=== PATIENT | male | born 1955 ===

== ENCOUNTER 2020-07-09 08:10 | Outpatient (REF) | payer MEDICARE, MEDICAID, SELFPAY ==
[2020-07-09 11:22] LABS: Anion Gap 13 (12-20); Blood Urea Nitrogen 15 mg/dL (9-16); Carbon Dioxide 28 mmol/L (22-29); Chloride 102 mmol/L (96-108); Estimated Glomerular Filt Rate > 60; Potassium 3.9 mmol/l (3.3-5.1); Sodium 139 mmol/L (135-145)
== END 2020-07-09 08:11 | disposition home or self-care (01) ==
LOC: HO.10HDL 08:10
PROVIDERS: Visit Provider Family Medicine
DX: I10 Essential (primary) hypertension (principal)
CPT/HCPCS: 36415; 80051; 82565; 84520

== ENCOUNTER → 2020-09-25 08:39 | Outpatient (BNVA) | payer MEDICARE, MEDICAID, SELFPAY | PROVIDERS: PCP Family Medicine; Visit Provider Anesthesiology | DX: M17.0 Bilateral primary osteoarthritis of knee (principal); M76.32 Iliotibial band syndrome, left leg; M70.61 Trochanteric bursitis, right hip; M70.62 Trochanteric bursitis, left hip; M54.5 Low back pain; E66.01 Morbid (severe) obesity due to excess calories; G89.4 Chronic pain syndrome | CPT/HCPCS: 99202; Q3014 ==

== ENCOUNTER 2020-10-15 06:09 | Outpatient (REF) | payer MEDICARE, SELFPAY ==
--- NOTE | 2020-10-15 08:13 | FL_ITS ---
EXAMINATION: XR FLUOROSCOPY WITH IMAGES CLINICAL INFORMATION: M17.0 - Bilateral primary osteoarthritis of knee COMPARISON: Radiographs right knee 05/10/2019 TECHNIQUE: Fluoroscopy performed by Ally Lipscomb NP. Fluoroscopy time: 0.1 minutes DAP: 0.589 Gycm2 Images: 2 FINDINGS: There is a spinal needle adjacent to the mid aspect medial side proximal tibia. There is a small round density representing known artifact overlying distal femur on both views. FL/FL guidance in treatment room IMPRESSION: Fluoroscopy for pain management procedure.
== END 2020-10-15 06:10 | disposition home or self-care (01) ==
LOC: HO.RADIR 06:09
PROVIDERS: Visit Provider Anesthesiology
DX: M17.0 Bilateral primary osteoarthritis of knee (principal); M76.32 Iliotibial band syndrome, left leg; M70.62 Trochanteric bursitis, left hip; M54.5 Low back pain; G89.4 Chronic pain syndrome; E66.01 Morbid (severe) obesity due to excess calories
CPT/HCPCS: 64450

== ENCOUNTER → 2020-10-21 10:39 | Outpatient (BNVA) | payer MEDICARE, SELFPAY | PROVIDERS: PCP Family Medicine; Visit Provider Anesthesiology | DX: M17.0 Bilateral primary osteoarthritis of knee (principal); E66.01 Morbid (severe) obesity due to excess calories; G89.4 Chronic pain syndrome; M76.32 Iliotibial band syndrome, left leg; M70.61 Trochanteric bursitis, right hip; M70.62 Trochanteric bursitis, left hip; M54.5 Low back pain | CPT/HCPCS: Q3014 ==

== ENCOUNTER 2020-12-23 10:09 | Outpatient (REF) | payer MEDICARE, SELFPAY | END 2020-12-23 10:10 | disposition home or self-care (01) | LOC: HO.LAB 10:09 | PROVIDERS: Visit Provider Internal Medicine | DX: Z20.822 Contact with and (suspected) exposure to COVID-19 (principal) | CPT/HCPCS: 36415; C9803; U0003; U0005 ==

== ENCOUNTER 2021-03-18 08:54 | Outpatient (REF) | payer MEDICARE, SELFPAY ==
[2021-03-18 09:45] LABS: Alanine Aminotransferase 33 U/L (0-40); Anion Gap 14 (12-20); Aspartate Amino Transferase 29 U/L (5-37); Blood Urea Nitrogen 16 mg/dL (9-16); Carbon Dioxide 25 mmol/L (22-29); Chloride 104 mmol/L (96-108); Estimated Glomerular Filt Rate > 60; Potassium 3.8 mmol/L (3.3-5.1); Sodium 139 mmol/L (135-145)
[2021-03-29 17:22] LABS: FIB-ALT 29 U/L (9-46); FIB-Alpha-2-Macroglobulin 247 mg/dL (106-279); FIB-Apolipoprotein A1 138 mg/dL (94-176); FIB-GGT 34 U/L (3-70); FIB-Haptoglobin 152 mg/dL (43-212); FIB-Total Bilirubin 0.5 mg/dL (0.2-1.2); Liver Fibrosis Score 0.41; Liver Fibrosis Stage F1-F2; Nec Inflam Act Grade A0; Nec Inflam Act Score 0.16
== END 2021-03-18 08:55 | disposition home or self-care (01) ==
LOC: HO.10HDL 08:54
PROVIDERS: Visit Provider Family Medicine
DX: I10 Essential (primary) hypertension (principal); K75.81 Nonalcoholic steatohepatitis (NASH)
CPT/HCPCS: 36415; 80051; 81596; 82565; 84450; 84460; 84520

== ENCOUNTER → 2021-07-31 10:41 | Outpatient (BNVA) | payer MEDICARE, SELFPAY | PROVIDERS: Visit Provider Anesthesiology | DX: M17.0 Bilateral primary osteoarthritis of knee (principal); M76.32 Iliotibial band syndrome, left leg; M70.62 Trochanteric bursitis, left hip; M70.61 Trochanteric bursitis, right hip; M54.50 Low back pain, unspecified; G89.4 Chronic pain syndrome; E66.01 Morbid (severe) obesity due to excess calories; Z68.37 Body mass index [BMI] 37.0-37.9, adult | CPT/HCPCS: 99212 ==

== ENCOUNTER 2021-09-16 09:29 | Outpatient (REF) | payer MEDICARE, SELFPAY ==
[2021-09-16 10:41] LABS: Alanine Aminotransferase 49 U/L (0-40); Anion Gap 13 (12-20); Aspartate Amino Transferase 49 U/L (5-37); Blood Urea Nitrogen 12 mg/dL (9-16); Carbon Dioxide 26 mmol/L (22-29); Chloride 102 mmol/L (96-108); Estimated Glomerular Filt Rate > 60; Potassium 3.9 mmol/L (3.3-5.1); Sodium 137 mmol/L (135-145)
== END 2021-09-16 09:30 | disposition home or self-care (01) ==
LOC: HO.10HDL 09:29
PROVIDERS: Visit Provider Family Medicine
DX: I10 Essential (primary) hypertension (principal); K75.81 Nonalcoholic steatohepatitis (NASH)
CPT/HCPCS: 36415; 80051; 82565; 84450; 84460; 84520

== ENCOUNTER 2021-09-19 07:20 | Day surgery (SDC) | payer MEDICARE, SELFPAY ==
--- NOTE | ~2021-09-19 | FL_ITS ---
EXAMINATION: XR FLUOROSCOPY WITH IMAGES CLINICAL INFORMATION: Stimulator trial. COMPARISON: None. TECHNIQUE: Fluoroscopy performed by Dr. Yomi Nelson Fluoroscopy time: 0.4 minutes DAP: 1.53 mGy-cm2 Images: 2 FINDINGS: 2 digital images were obtained. The first image reveals a metallic pin along the medial proximal tibial cortex. This second image reveals a stimulator electrode along medial proximal tibial cortex. Mild reduction in medial and lateral compartment joint space is seen. No loose bodies or bony erosive changes. FL/FL guidance in OR IMPRESSION: Fluoroscopy was provided to Dr. Nelson for stimulator trial.
--- NOTE | 2021-09-19 08:00 | HO.ANESPROP2 ---
HPI - Anesthesia Eval Consult details Narrative: 66 M for Infrapatellar Saphenous nerve stimulation trial. PMFSH Active Problems Active Problems: All Active Problems (Updated 09/25/20 @ 09:33 by Yomi Nelson MD) Morbid obesity (Acute) Chronic pain syndrome (Acute) Low back pain (Acute) Greater trochanteric bursitis of both hips (Acute) Iliotibial band syndrome, left leg (Acute) Bilateral primary osteoarthritis of knee (Acute) Past Medical History Medical History (Updated 09/25/20 @ 09:33 by Yomi Nelson MD) Bilateral primary osteoarthritis of knee Chronic pain syndrome Greater trochanteric bursitis of both hips Iliotibial band syndrome, left leg Low back pain Morbid obesity Family History Family history of problems with anesthesia: No Surgical History History of Problems with Anesthesia: No Social History Social History Advance Directives: No Advance Directives Information Provided: Yes Meds Allergies Allergy/AdvReac Type Severity Reaction Status Date / Time No Known Allergies Allergy Verified 07/31/21 10:55 [No Known Allergies*] Home Medications Medication Instructions Recorded Confirmed Last Taken Type metoprolol succinate 100 mg 100 mg PO DAILY 09/25/20 10/21/20 Unknown History tablet,extended release 24 hr sertraline 50 mg tablet 50 mg PO DAILY 09/25/20 10/21/20 Unknown History tramadol 50 mg tablet mg PO 09/25/20 10/21/20 Unknown History Exam Exam Date and Time: September 19, 2021 0800 Airway Mallampati Class: III Loose/Missing/Broken Teeth: Yes (Chipped and missing teeth ) Heart: rrr Lungs: bl breath sounds Assessment and Plan Assessment Anesthesia Assessment: Anesthesia Plan Discussed Final Anesthetic Review Family History of Problems with Anesthesia: No History of Problems with Anesthesia: No ASA Class: III Final Preanesthetic Review: Anes Risks/Benef Reviewed Patient Risk: Intermediate Procedure Risk: Intermediate Anesthetic Plan Anesthetic Plan: MAC: Disposition: Standard PACU
[2021-09-19 08:24] VITALS: BP 140/80; PULSE 66; RESP 16; TEMP 36.6; O2SAT 96; BMI 37.0
--- NOTE | 2021-09-19 08:32 | MHC.SHP ---
Pre-Procedural Eval Section A Date of Service: 09/19/21 The patient is an INPATIENT: No Changes since office visit: Yes Patient answered all questions The History & Physical has been completed within 30 days and I have reviewed it.: No Section B Chief Complaint: bilateral prinary osteoarthritis of knee Details of Present Illness: right knee osteoarthritis Relevant Family History (Specify if Yes): No Relevant Social History: None Present Medications: see Short Stay Collaborative assessment Medical History: No relevant PMH History of Previous Operations: No relevant previous surgery Allergies: Allergies Allergy/AdvReac Type Severity Reaction Status Date / Time No Known Allergies Allergy Verified 07/31/21 10:55 [No Known Allergies*] Review of Systems Sugical H&P ROS: Negative: Constitution, Cardiovascular, Respiratory, Neurological, Psychiatric, Hem-Onc, Allergic/Immunologic, Gastrointestinal, Genitourinary, Musculoskeletal, Integumentary, Endocrine and Eyes/Ears/Nose/Throat Exam Surgical H&P Exam: Normal: HEENT, Normal: Heart, Normal: Lungs, Normal: Extremities, Normal: Abdomen, Normal: Skin and Normal: Neurological Plan Diagnosis/Plan: Unchanged I have reviewed the history and physical and performed a pertinent physical examination on my patient. No changes have occurred unless specified.
[2021-09-19] MEDS: Lactated Ringers 1,000 ML 80 ML IVCONT (08:50)
--- NOTE | 2021-09-19 09:49 | P.OP_ITS ---
Operative Note Operative Note Date of Service: 09/19/21 Narrative: After obtaining informed consent the patient was brought to the operating room, he was positioned supine on the operating table, [employer] monitors were applied and patient was induced with general anesthesia. ?? Time-out was performed delineating correct site, side, the nature of the procedure, patient's allergy, preoperative antibiotic.? All operating room staff was participating in OR time-out procedure.? The patient received cefazolin 2 g mg intravenously 10 minutes before the procedure The patient was positioned supine on the operating table with right leg elevated on a gel bin.? ? The entire right leg from the mid thigh all the way down to the toes was prepped with ChloraPrep twice.? The foot was protected with the sterile foot cover and after that fenestrated full extremity drape was applied to the leg. attention was concentrated on the?right?INFRAPATELLAR SAPHENOUS NERVE.? Sterilely draped C-arm was brought over the operating field and sq picture of tibial bone was demonstrated on the screen.? The point of interest was delineated as the connection between metaphysis and diaphysis of the medial site of the tibial bone.? 22 gauge 3-1/2 inch spinal needle was driven to the point of interest where the advancement of the medial line of the shaft of the tibial bone changed its direction and formed an angle.? The position of the needle in the projection of mid shaft of the bone was verified on the lateral view.? 8 cm below that needle in the projection of the medial shaft of the tibial bone local anesthetic was injected with bupivacaine 0.5 % mixture with lidocaine 2% into the skin.? The insertion of the 14 gauge introducer was performed through the skin wheal and advanced cephalad toward the projection of the 22 gauge needle in the plane corresponding to mid shaft of the tibial bone on lateral view and following silhouette of the medial tibial bone on the AP view.? When the introducer reached the vicinity of 22 gauge needle guitar wire was inserted into the introducer needle and spread on anterior posterior and lateral views alongside the medial border of the tibial bone on anterior posterior view and in the projection of the mid shaft of the bone on the lateral view.? Upon completion of the advancement of the guitar wire it was removed and stimulator catheter was inserted and advanced in the same fashion.? When the catheter reached adequate position following curvature of the medial metaphysis of the tibial bone on anterior posterior view and position in midline of the shaft of the tibial bone in lateral view the introducer needle was gently removed with care taken not to dislodge the stimulating catheter.? After that the driving stylet was removed from the stimulating catheter and thin copper wire stimulating element was inserted into the catheter.? The catheter was fixed to the skin using Steri-Strips, sterile dressing was applied the catheter was tied on itself below the level of the 2nd electrode of antenna.?Sterile dressing was applied. The stimulating paddle was taped to the catheter. The patient tolerated procedure well , he was awaken, extubated and moved outside of the operating room to recovery room where he recovered uneventfully.
--- NOTE | 2021-09-19 09:53 | PM.OP ---
Brief Operative Note Date of Service: 09/19/21 Pre-op diagnosis: right knee osteoarthritis Procedure: trial of the infrapatellar saphenous PNS Stimwave Implants: none permanent Surgeon: Yomi Nelson MD Anesthesia: GLMA Was an Supervisor Post Wave used for this Procedure?: No Estimated blood loss (mL): 0 Pathology: none sent Condition: stable Disposition: PACU
[2021-09-19 09:54] VITALS: BP 126/71; PULSE 77; RESP 18; TEMP 36.7; O2SAT 98
[2021-09-19 09:59] VITALS: BP 114/75; PULSE 72; RESP 18; O2SAT 96
[2021-09-19 10:04] VITALS: BP 116/83; PULSE 78; RESP 18; O2SAT 97
[2021-09-19 10:09] VITALS: BP 125/78; PULSE 72; RESP 18; O2SAT 95
[2021-09-19 10:25] VITALS: BP 131/74; PULSE 67; RESP 18; TEMP 36.7; O2SAT 95
== END 2021-09-19 10:55 | disposition home or self-care (01) ==
LOC: HO.SSS 07:21
PROVIDERS: PCP Family Medicine; Visit Provider Anesthesiology
PROC: (CPT 64555; principal; 2021-09-19 09:00)
DX: M17.0 Bilateral primary osteoarthritis of knee (principal); G89.4 Chronic pain syndrome; M76.32 Iliotibial band syndrome, left leg; R25.2 Cramp and spasm; M54.50 Low back pain, unspecified; M70.62 Trochanteric bursitis, left hip; M70.61 Trochanteric bursitis, right hip; M25.552 Pain in left hip; M25.551 Pain in right hip; I10 Essential (primary) hypertension; E66.01 Morbid (severe) obesity due to excess calories; Z68.37 Body mass index [BMI] 37.0-37.9, adult
CPT/HCPCS: 64555; C1816; J0690; J2250; J3010

== ENCOUNTER → 2021-09-25 09:03 | Outpatient (BNVA) | payer MEDICARE, SELFPAY | PROVIDERS: Visit Provider Anesthesiology | DX: M17.0 Bilateral primary osteoarthritis of knee (principal); M76.32 Iliotibial band syndrome, left leg; M70.61 Trochanteric bursitis, right hip; M70.62 Trochanteric bursitis, left hip; M54.59 Other low back pain; G89.4 Chronic pain syndrome; E66.01 Morbid (severe) obesity due to excess calories | CPT/HCPCS: 99212 ==

== ENCOUNTER 2021-12-04 10:06 | Day surgery (SDC) | payer MEDICARE, SELFPAY ==
--- NOTE | 2021-12-03 10:15 | HO.ANESPROP2 ---
Documented by User: Ene Mcgee NP 12/03/21 10:17 HPI - Anesthesia Eval Consult details Narrative: 66yo M for Right Infrapatellar Saphenous Nerve Stimulator Im[facility] [place] [facility] Active Problems Active Problems: All Active Problems (Updated 11/28/21 @ 11:03 by Amber Venegas RN) Morbid obesity (Acute) Chronic pain syndrome (Acute) Low back pain (Acute) Greater trochanteric bursitis of both hips (Acute) Iliotibial band syndrome, left leg (Acute) Bilateral primary osteoarthritis of knee (Acute) Past Medical History Medical History Bilateral primary osteoarthritis of knee Chronic pain syndrome Depression GERD (gastroesophageal reflux disease) Greater trochanteric bursitis of both hips HTN (hypertension) Iliotibial band syndrome, left leg Low back pain Morbid obesity On beta jenna at home Family History Family history of problems with anesthesia: No Surgical History Surgical History Hx of colonoscopy History of Problems with Anesthesia: No Social History Social History Patient Tobacco Use Status: Never used Tobacco Use of substances other than those prescribed or required for medical reasons: No Are you DNR?: No Advance Directives: No Advance Directives Information Provided: Yes Meds Allergies Allergy/AdvReac Type Severity Reaction Status Date / Time No Known Allergies Allergy Verified 11/28/21 10:56 [No Known Allergies*] Home Medications Medication Instructions Recorded Confirmed Last Taken Type metoprolol succinate 100 mg 100 mg PO DAILY 09/25/20 11/28/21 Unknown History tablet,extended release 24 hr sertraline 50 mg tablet 50 mg PO DAILY 09/25/20 11/28/21 Unknown History tramadol 50 mg tablet 50 mg PO TID PRN 09/25/20 11/28/21 Unknown History albuterol sulfate 90 mcg/actuation 2 puff INHALATION Q4H PRN 11/28/21 11/28/21 Unknown History aerosol inhaler (ProAir HFA) fluticasone propionate 50 1 spray INTRANASAL DAILY PRN 11/28/21 11/28/21 Unknown History mcg/actuation nasal spray,suspension lisinopril 5 mg tablet 1 tab PO DAILY 11/28/21 11/28/21 Unknown History Exam Exam Date and Time: December 03, 2021 1015 Pertinent Lab Results Pertinent Lab Results: Laboratory Tests 09/16/21 09:32 Sodium 137 Potassium 3.9 Chloride 102 Carbon Dioxide 26 BUN 12 Creatinine 0.94 Assessment and Plan Assessment Anesthesia Assessment: Chart Reviewed Final Anesthetic Review Family History of Problems with Anesthesia: No History of Problems with Anesthesia: No Documented by User: Yue Cárdenas MD 12/04/21 13:15 PMF Active Problems Active Problems: All Active Problems (Updated 11/28/21 @ 11:03 by Amber Venegas RN) Morbid obesity (Acute) Chronic pain syndrome (Acute) Low back pain (Acute) Greater trochanteric bursitis of both hips (Acute) Iliotibial band syndrome, left leg (Acute) Bilateral primary osteoarthritis of knee (Acute) Denies LEEANN Past Medical History Medical History Bilateral primary osteoarthritis of knee Chronic pain syndrome Depression GERD (gastroesophageal reflux disease) Greater trochanteric bursitis of both hips HTN (hypertension) Iliotibial band syndrome, left leg Low back pain Morbid obesity On beta jenna at home Surgical History Surgical History Hx of colonoscopy Social History Social History Patient Tobacco Use Status: Never used Tobacco Use of substances other than those prescribed or required for medical reasons: No Are you DNR?: No Advance Directives: No Advance Directives Information Provided: Yes Meds Allergies Allergy/AdvReac Type Severity Reaction Status Date / Time No Known Allergies Allergy Verified 11/28/21 10:56 [No Known Allergies*] Home Medications Medication Instructions Recorded Confirmed Last Taken Type metoprolol succinate 100 mg 100 mg PO DAILY 09/25/20 11/28/21 Unknown History tablet,extended release 24 hr sertraline 50 mg tablet 50 mg PO DAILY 09/25/20 11/28/21 Unknown History tramadol 50 mg tablet 50 mg PO TID PRN 09/25/20 11/28/21 Unknown History albuterol sulfate 90 mcg/actuation 2 puff INHALATION Q4H PRN 11/28/21 11/28/21 Unknown History aerosol inhaler (ProAir HFA) fluticasone propionate 50 1 spray INTRANASAL DAILY PRN 11/28/21 11/28/21 Unknown History mcg/actuation nasal spray,suspension lisinopril 5 mg tablet 1 tab PO DAILY 11/28/21 11/28/21 Unknown History Exam Height,Weight and Vital Signs: Height 5 ft 4 in Weight 97.976 kg Vital Signs Temp Pulse Resp BP Pulse Ox 12/04/21 10:58 98.1 F 66 18 133/79 98 Airway Mallampati Class: III TM Dist: >3cm Neck ROM: Full Loose/Missing/Broken Teeth: Yes (Some missing. Unsure if any broken ) Heart: RRR Lungs: CTAB Assessment and Plan Assessment Anesthesia Assessment: Anesthesia Plan Discussed Final Anesthetic Review NPO: Yes ASA Class: III Final Preanesthetic Review: No Changes in Pt Med Stat, Meds/Allgs Chart Reviewed, Consent Obtained/Reviewed and Anes Risks/Benef Reviewed Patient Risk: Intermediate Procedure Risk: Low Assessment/Block/Sedation in SS: Assess/Block/Sedation-SS Anesthetic Plan Anesthetic Plan: GA Disposition: Standard PACU
--- NOTE | ~2021-12-04 | FL_ITS ---
EXAMINATION: XR FLUOROSCOPY WITH IMAGES CLINICAL INFORMATION: Infrapatellar saphenous nerve stimulator implant. COMPARISON: 09/19/2021 TECHNIQUE: Fluoroscopy performed by Dr. Yomi Nelson. Fluoroscopy time: 0.7 minutes DAP: 1.81 mGy-cm2 Images: 3 FINDINGS: 3 images demonstrate a tip of a metallic device overlying the mid medial tibial plateau. A final image demonstrates a radiopaque electrode or wire in place. FL/FL guidance in OR IMPRESSION: Fluoroscopy provided for pain management procedure by Dr. Yomi Nelson. Please see Dr. Nelson's note for full details.
[2021-12-04 10:58] VITALS: BP 133/79; PULSE 66; RESP 18; TEMP 36.7; O2SAT 98; BMI 37.0
--- NOTE | 2021-12-04 11:03 | P.HPSUR_ITS ---
Pre-Procedural Eval Section A Date of Service: 12/04/21 Section B Chief Complaint: bilateral osteoarthritis of knee Details of Present Illness: As above Relevant Family History (Specify if Yes): No Relevant Social History: None Present Medications: see Short Stay Collaborative assessment Medical History: No relevant PMH History of Previous Operations: No relevant previous surgery Allergies: Allergies Allergy/AdvReac Type Severity Reaction Status Date / Time No Known Allergies Allergy Verified 11/28/21 10:56 [No Known Allergies*] Review of Systems Sugical H&P ROS: Negative: Constitution, Cardiovascular, Respiratory, Neurol ogical, Psychiatric, Hem-Onc, Allergic/Immunologic, Gastrointestinal, Genitourinary, Musculoskeletal, Integumentary, Endocrine and Eyes/Ears/Nose/Throat Exam Surgical H&P Exam: Normal: HEENT, Normal: Heart, Normal: Lungs, Normal: Extremities, Normal: Abdomen, Normal: Skin and Normal: Neurological Plan Diagnosis/Plan: Unchanged I have reviewed the history and physical and performed a pertinent physical examination on my patient. No changes have occurred unless specified.
[2021-12-04] MEDS: Lactated Ringers 1,000 ML 100 ML IVCONT (11:04)
--- NOTE | 2021-12-04 11:04 | P.OP_ITS ---
Operative Note Operative Note Date of Service: 12/04/21 Narrative: Implantation of the STIMWAVE peripheral nerve stimulator wire infrapatellar saphenous nerve position right lower extremity. After obtaining informed consent patient was brought to the operating room, she was positioned supine on the operating table, [employer] monitors were applied and ? In general anesthesia was administered.? LMA was used. ??Time-out was performed delineating correct site, side, the nature of the procedure, patient's allergy, preoperative antibiotic.? All operating room staff was participating in OR time-out procedure.? The patient received cefazolin 2 g mg intravenously 30 minutes before the procedure The patient was positioned supine on the operating table with right leg elevated on a gel bin.? ? The entire right leg from the mid thigh all the way down to the toes was prepped with ChloraPrep twice.? The foot was protected with the sterile foot cover and after that fenestrated full extremity drape was applied to the leg. attention was concentrated on the?right?INFRAPATELLAR SAPHENOUS NERVE.? Sterilely draped C-arm was brought over the operating field and sq picture of tibial bone was demonstrated on the screen.? The point of interest was delineated as the connection between metaphysis and diaphysis of the medial site of the tibial bone.? 22 gauge 3-1/2 inch spinal needle was driven to the point of interest where the advancement of the medial line of the shaft of ?the tibial bone changed its direction and formed an angle.? The position of the needle in the projection of mid shaft of the bone was verified on the lateral viewwith femoral condyles superimposed.? 8 cm below that needle in the projection of the medial shaft of the tibial bone local anesthetic was injected with bupivacaine 0.5 % mixture with lidocaine 2% into the skin.? At this point 3 cm incision was made to the skin using 10 blade scalpel.? Thorough hemostasis was obtained? using electrocautery.? The insertion of the 14 gauge introducer w as performed and advanced cephalad toward the projection of the 22 gauge needle in the plane corresponding to mid shaft of the tibial bone on lateral view and following silhouette of the medial tibial bone on the AP view.? When the introducer reached the vicinity of 22 gauge needle guitar wire was inserted into the introducer needle and spread on anterior posterior and lateral views alongside the medial border of the tibial bone on anterior posterior view and in the projection of the mid shaft of the bone on the lateral view.? Upon completion of the advancement of the guitar wire it was removed and stimulator catheter was inserted and advanced in the same fashion.? When the catheter reached adequate position following curvature of the medial metaphysis of the tibial bone on anterior posterior view and position in midline of the shaft of the tibial bone in lateral view the introducer needle was gently removed with care taken not to dislodge the stimulating catheter.? After that the driving stylet was removed from the stimulating catheter and thin copper wire stimulating element was inserted into the catheter.? The catheter was fixed to the? Subcutaneous fascia with 1 Tycron suture 0-2. ? After that 15 cm below that level another vertical incision was applied 3 cm long to medial surface of the ankle.? Thorough hemostasis was obtained. the 2 wounds were connected using tunneling device and the stimulating wire was dislodged into the ankle? wound.? After that the coil was formed at the end of the stimulating catheter the Sydney clamp was used to create a pocket for the coil. the coil? was inserted into the pocket.? After that both wounds were irrigated with copious amount of vancomycin containing normal saline.Vertical mattress sutures were used to close the skin . Mastisol was applied to the skin level and wounds were covered with Steri- Strips.? Sterile dressing was applied using?Tegaderm. The patient tolerated procedure well he was? awaken, extubated, and he was taken outside of the operating room to recovery room where he recovered uneventfully.
--- NOTE | 2021-12-04 14:34 | PM.OP ---
Brief Operative Note Date of Service: 12/04/21 Pre-op diagnosis: right knee osteoarthritis Post-op diagnosis: same Procedure: implantation of PNS Stimwave infrapatellar saphenous nerve position right lower extremity (right knee pain) Implants: STIMWAVE stimulating electrode. Surgeon: Yomi Nelson MD Anesthesia: GLMA Was an Associate Art Director used for this Procedure?: No Estimated blood loss (mL): 9 Pathology: none sent Condition: stable Disposition: PACU
[2021-12-04 14:41] VITALS: BP 146/84; PULSE 97; RESP 14; TEMP 36.4; O2SAT 99
[2021-12-04 14:46] VITALS: BP 143/80; PULSE 93; RESP 17; O2SAT 94
[2021-12-04 14:51] VITALS: BP 132/85; PULSE 89; RESP 18; O2SAT 93
[2021-12-04 14:56] VITALS: BP 147/83; PULSE 87; RESP 18; O2SAT 94
[2021-12-04 15:20] VITALS: BP 138/79; PULSE 84; RESP 18; TEMP 36.4; O2SAT 97
--- NOTE | 2021-12-04 15:45 | PC.NURSE ---
WRITTEN PRESCRIPTION GIVEN TO PATIENT FOR PERCOCET. CLAIMS COUNSEL STATES DR. MARIO DID NOT GIVE AN ANTIBIOTIC.
== END 2021-12-04 15:46 | disposition home or self-care (01) ==
PROVIDERS: PCP Family Medicine; Visit Provider Anesthesiology
PROC: (CPT 64555; principal; 2021-12-04 12:20)
DX: M17.0 Bilateral primary osteoarthritis of knee (principal); G89.4 Chronic pain syndrome; M25.561 Pain in right knee; M76.32 Iliotibial band syndrome, left leg; M70.62 Trochanteric bursitis, left hip; M70.61 Trochanteric bursitis, right hip; M54.50 Low back pain, unspecified; I10 Essential (primary) hypertension; E66.01 Morbid (severe) obesity due to excess calories
CPT/HCPCS: 64555; C1816; J0690; J2250; J2405; J3010

== ENCOUNTER → 2021-12-10 13:47 | Outpatient (BNVA) | payer MEDICARE, SELFPAY | PROVIDERS: Visit Provider Anesthesiology | DX: M17.0 Bilateral primary osteoarthritis of knee (principal); M76.32 Iliotibial band syndrome, left leg; M70.61 Trochanteric bursitis, right hip; M70.62 Trochanteric bursitis, left hip; G89.4 Chronic pain syndrome; E66.01 Morbid (severe) obesity due to excess calories; Z98.890 Other specified postprocedural states | CPT/HCPCS: 99212 ==

== ENCOUNTER → 2021-12-17 13:38 | Outpatient (BNVA) | payer MEDICARE, SELFPAY | PROVIDERS: Visit Provider Anesthesiology | DX: M17.0 Bilateral primary osteoarthritis of knee (principal); M76.32 Iliotibial band syndrome, left leg; M70.61 Trochanteric bursitis, right hip; M70.62 Trochanteric bursitis, left hip; M54.50 Low back pain, unspecified; G89.4 Chronic pain syndrome; E66.01 Morbid (severe) obesity due to excess calories; Z96.82 Presence of neurostimulator | CPT/HCPCS: 99212 ==

== ENCOUNTER → 2021-12-25 10:30 | Outpatient (BNVA) | payer MEDICARE, SELFPAY | PROVIDERS: Visit Provider Anesthesiology | DX: M17.0 Bilateral primary osteoarthritis of knee (principal); M76.32 Iliotibial band syndrome, left leg; M70.61 Trochanteric bursitis, right hip; M70.62 Trochanteric bursitis, left hip; M54.50 Low back pain, unspecified; G89.4 Chronic pain syndrome; E66.01 Morbid (severe) obesity due to excess calories | CPT/HCPCS: 99212 ==

== ENCOUNTER 2022-03-18 08:39 | Outpatient (REF) | payer OTHER, SELFPAY ==
[2022-03-18 10:44] LABS: Anion Gap 13 (12-20); Blood Urea Nitrogen 18 mg/dL (9-16); Carbon Dioxide 26 mmol/L (22-29); Chloride 103 mmol/L (96-108); Estimated Glomerular Filt Rate > 60; Potassium 4.1 mmol/L (3.3-5.1); Sodium 138 mmol/L (135-145)
== END 2022-03-18 08:40 | disposition home or self-care (01) ==
LOC: HO.10HDL 08:39
PROVIDERS: Internal Medicine; Visit Provider Family Medicine
DX: I10 Essential (primary) hypertension (principal)
CPT/HCPCS: 36415; 80051; 82565; 84520

== ENCOUNTER → 2022-04-13 14:15 | Outpatient (BNVA) | payer OTHER, SELFPAY | PROVIDERS: Visit Provider Anesthesiology | DX: M17.0 Bilateral primary osteoarthritis of knee (principal); M76.32 Iliotibial band syndrome, left leg; M70.61 Trochanteric bursitis, right hip; M70.62 Trochanteric bursitis, left hip; G89.4 Chronic pain syndrome; M54.50 Low back pain, unspecified; E66.01 Morbid (severe) obesity due to excess calories | CPT/HCPCS: 99212 ==

== ENCOUNTER 2022-09-09 09:09 | Outpatient (REF) | payer OTHER, SELFPAY ==
[2022-09-09 11:21] LABS: Alanine Aminotransferase 44 U/L (0-40); Anion Gap 14 (12-20); Aspartate Amino Transferase 35 U/L (5-37); Blood Urea Nitrogen 13 mg/dL (9-16); Carbon Dioxide 25 mmol/L (22-29); Chloride 102 mmol/L (96-108); Estimated Glomerular Filt Rate > 60; Potassium 4.1 mmol/L (3.3-5.1); Sodium 137 mmol/L (135-145)
== END 2022-09-09 09:10 | disposition home or self-care (01) ==
LOC: HO.10HDL 09:09
PROVIDERS: Visit Provider Family Medicine
DX: I10 Essential (primary) hypertension (principal); K75.81 Nonalcoholic steatohepatitis (NASH)
CPT/HCPCS: 36415; 80051; 82565; 84450; 84460; 84520

== ENCOUNTER → 2023-02-15 10:34 | Outpatient (BNVA) | payer OTHER, SELFPAY | PROVIDERS: Visit Provider Anesthesiology | DX: M17.0 Bilateral primary osteoarthritis of knee (principal); M54.50 Low back pain, unspecified; M54.16 Radiculopathy, lumbar region; M51.36 Other intervertebral disc degeneration, lumbar region; G89.4 Chronic pain syndrome; E66.01 Morbid (severe) obesity due to excess calories | CPT/HCPCS: 99212 ==

== ENCOUNTER 2023-03-04 06:31 | Outpatient (REF) | payer OTHER, SELFPAY ==
[2023-03-04 07:44] LABS: Estimated Average Glucose 131 mg/dL; Hemoglobin A1c % 6.2 %
[2023-03-04 10:02] LABS: Alanine Aminotransferase 58 U/L (0-40); Anion Gap 16 (12-20); Aspartate Amino Transferase 42 U/L (5-37); Blood Urea Nitrogen 12 mg/dL (9-16); Carbon Dioxide 24 mmol/L (22-29); Chloride 105 mmol/L (96-108); Estimated Glomerular Filt Rate > 60; Glucose Fasting 121 mg/dL (60-99); Potassium 4.3 mmol/L (3.3-5.1); Sodium 141 mmol/L (135-145)
== END 2023-03-04 06:32 | disposition home or self-care (01) ==
LOC: HO.LAB 06:31
PROVIDERS: PCP Family Medicine; Visit Provider Family Medicine
DX: I10 Essential (primary) hypertension (principal); K75.81 Nonalcoholic steatohepatitis (NASH); R73.9 Hyperglycemia, unspecified; Z83.3 Family history of diabetes mellitus
CPT/HCPCS: 36415; 80051; 82565; 82947; 83036; 84450; 84460; 84520

== ENCOUNTER 2023-07-05 08:31 | Outpatient (REF) | payer OTHER, SELFPAY ==
[2023-07-05 10:01] LABS: Estimated Average Glucose 134 mg/dL; Hemoglobin A1c % 6.3 % (<6.0)
[2023-07-05 10:09] LABS: Anion Gap 13 (12-20); Blood Urea Nitrogen 12 mg/dL (9-16); Carbon Dioxide 26 mmol/L (22-29); Chloride 101 mmol/L (96-108); Estimated Glomerular Filt Rate > 60; Glucose Fasting 117 mg/dL (60-99); Potassium 3.8 mmol/L (3.3-5.1); Sodium 136 mmol/L (135-145)
[2023-07-09 14:49] LABS: FIB-ALT 59 U/L (9-46); FIB-Alpha-2-Macroglobulin 254 mg/dL (106-279); FIB-Apolipoprotein A1 157 mg/dL (94-176); FIB-GGT 36 U/L (3-70); FIB-Haptoglobin 141 mg/dL (43-212); FIB-Total Bilirubin 0.7 mg/dL (0.2-1.2); Liver Fibrosis Score 0.46; Liver Fibrosis Stage F1-F2; Nec Inflam Act Grade A1-A2; Nec Inflam Act Score 0.41
== END 2023-07-05 08:32 | disposition home or self-care (01) ==
LOC: HO.LAB 08:31
PROVIDERS: Visit Provider Family Medicine
DX: I10 Essential (primary) hypertension (principal); E11.9 Type 2 diabetes mellitus without complications; K75.81 Nonalcoholic steatohepatitis (NASH)
CPT/HCPCS: 36415; 80051; 81596; 82565; 82947; 83036; 84520

== ENCOUNTER 2023-07-26 11:57 | Day surgery (SDC) | payer OTHER, SELFPAY ==
--- NOTE | 2023-07-23 10:13 | HO.ANESPROP2 ---
HPI - Anesthesia Eval Consult details Narrative: 68yo M for Colonoscopy PMFSH Active Problems Active Problems: All Active Problems (Updated 02/15/23 @ 11:12 by Yomi Nelson MD) Radiculopathy of lumbar region (Acute) Disc degeneration, lumbar (Acute) Morbid obesity (Acute) Chronic pain syndrome (Acute) Low back pain (Acute) Greater trochanteric bursitis of both hips (Acute) Iliotibial band syndrome, left leg (Acute) Bilateral primary osteoarthritis of knee (Acute) Past Medical History Medical History Bilateral primary osteoarthritis of knee Chronic pain syndrome Depression GERD (gastroesophageal reflux disease) Greater trochanteric bursitis of both hips HTN (hypertension) Iliotibial band syndrome, left leg Low back pain Morbid obesity On beta jenna at home Family History Family history of problems with anesthesia: No Surgical History Surgical History Hx of colonoscopy History of Problems with Anesthesia: No Social History Social History Patient Tobacco Use Status: Never used Tobacco Meds Allergies Allergy/AdvReac Type Severity Reaction Status Date / Time sudamedaphine Allergy Unknown Uncoded 07/23/23 09:01 Home Medications Medication Instructions Recorded Confirmed Last Taken Type metoprolol succinate 100 mg 100 mg PO DAILY 09/25/20 11/28/21 Unknown History tablet,extended release 24 hr sertraline 50 mg tablet 50 mg PO DAILY 09/25/20 11/28/21 Unknown History tramadol 50 mg tablet 50 mg PO TID PRN Pain 09/25/20 11/28/21 Unknown History albuterol sulfate 90 mcg/actuation 2 puff inhalation Q4H PRN Wheezing 11/28/21 11/28/21 Unknown History aerosol inhaler (ProAir HFA) fluticasone propionate 50 1 spray intranasal DAILY PRN 11/28/21 11/28/21 Unknown History mcg/actuation nasal allergies spray,suspension lisinopril 5 mg tablet 1 tab PO DAILY 11/28/21 11/28/21 Unknown History aspirin 81 mg chewable tablet 81 mg PO DAILY 07/23/23 07/23/23 Unknown History Exam Exam Date and Time: July 23, 2023 1013 Pertinent Lab Results Pertinent Lab Results: Laboratory Tests 07/05/23 09:03 Sodium 136 Potassium 3.8 Chloride 101 Carbon Dioxide 26 BUN 12 Creatinine 0.83 Assessment and Plan Assessment Anesthesia Assessment: Chart Reviewed Final Anesthetic Review Family History of Problems with Anesthesia: No History of Problems with Anesthesia: No
[2023-07-26 12:03] VITALS: BMI 36.9
--- NOTE | 2023-07-26 12:15 | P.CONAN_ITS ---
[facility] Active Problems Active Problems: All Active Problems (Updated 02/15/23 @ 11:12 by Yomi Nelson MD) Radiculopathy of lumbar region (Acute) Disc degeneration, lumbar (Acute) Morbid obesity (Acute) Chronic pain syndrome (Acute) Low back pain (Acute) Greater trochanteric bursitis of both hips (Acute) Iliotibial band syndrome, left leg (Acute) Bilateral primary osteoarthritis of knee (Acute) Past Medical History Medical History GERD (gastroesophageal reflux disease) On beta jenna at home Depression HTN (hypertension) Morbid obesity Chronic pain syndrome Low back pain Greater trochanteric bursitis of both hips Iliotibial band syndrome, left leg Bilateral primary osteoarthritis of knee Family History Family history of problems with anesthesia: No Surgical History Surgical History Hx of colonoscopy History of Problems with Anesthesia: No Social History Social History Patient Tobacco Use Status: Never used Tobacco Use of substances other than those prescribed or required for medical reasons: No Are you DNR?: No Advance Directives: No Advance Directives Information Provided: Yes Meds Allergies Allergy/AdvReac Type Severity Reaction Status Date / Time sudamedaphine Allergy Unknown Uncoded 07/23/23 09:01 Active Medications: Current Medications Lactated Ringer's (Lr) 1,000 mls @ 100 mls/hr IVCONT .Q10H RENAY Ondansetron HCl (Ondansetron Hcl 4 Mg/2 Ml Vial) 4 mg IVPUSH ONCE PRN PRN Reason: Nausea and Vomiting Sodium Biphosphate/Sodium Phosphate (Sodium Phosphate,[place]-Dibasic 133 Ml Enema) 133 ml ID ONCE PRN PRN Reason: Poor Colonoscopy Prep Results Home Medications Medication Instructions Recorded Confirmed Last Taken Type metoprolol succinate 100 mg 100 mg PO DAILY 09/25/20 11/28/21 Unknown History tablet,extended release 24 hr sertraline 50 mg tablet 50 mg PO DAILY 09/25/20 11/28/21 Unknown History tramadol 50 mg tablet 50 mg PO TID PRN Pain 09/25/20 11/28/21 Unknown History albuterol sulfate 90 mcg/actuation 2 puff inhalation Q4H PRN Wheezing 11/28/21 11/28/21 Unknown History aerosol inhaler (ProAir HFA) fluticasone propionate 50 1 spray intranasal DAILY PRN 11/28/21 11/28/21 Unknown History mcg/actuation nasal allergies spray,suspension lisinopril 5 mg tablet 1 tab PO DAILY 11/28/21 11/28/21 Unknown History aspirin 81 mg chewable tablet 81 mg PO DAILY 07/23/23 07/23/23 Unknown History Exam Exam Date and Time: July 26, 2023 1215 Height,Weight and Vital Signs: Height 5 ft 4 in Weight 97.522 kg Airway Mallampati Class: III TM Dist: >3cm Neck ROM: Full Loose/Missing/Broken Teeth: No (rrr) Heart: rrr Lungs: clear Assessment and Plan Final Anesthetic Review Family History of Problems with Anesthesia: No History of Problems with Anesthesia: No ASA Class: II Final Preanesthetic Review: No Changes in Pt Med Stat, Meds/Allgs Chart Reviewed, Consent Obtained/Reviewed and Anes Risks/Benef Reviewed Procedure Risk: Low Anesthetic Plan Anesthetic Plan: MAC: Disposition: Standard PACU
[2023-07-26] MEDS: Lactated Ringers 1,000 ML 100 ML IVCONT (12:19)
[2023-07-26 12:20] VITALS: BP 143/91; PULSE 82; RESP 16; TEMP 36.9; O2SAT 96
[2023-07-26 13:15] VITALS: BP 117/73; PULSE 75; RESP 17; TEMP 36.6; O2SAT 99
--- NOTE | 2023-07-26 13:19 | PM.OP ---
Brief Operative Note Date of Service: 07/26/23 Pre-op diagnosis: Screening Post-op diagnosis: other (Diverticulosis, Limited bowel prep) Procedure: Colonoscopy to the cecum Surgeon: Félix Wong MD Anesthesia: MAC Was an Cash Application Representative used for this Procedure?: No Estimated blood loss (mL): 0 Pathology: none sent Condition: stable Disposition: PACU
[2023-07-26 13:30] VITALS: BP 138/79; PULSE 74; RESP 16; TEMP 36.6; O2SAT 97
--- NOTE | 2023-07-27 | OP_ITS ---
DATE OF SERVICE: 07/26/2023 SURGEON: Félix oWng MD INDICATIONS: The patient presents for evaluation of personal history of tubular adenoma of the colon and colorectal cancer screening. Full consent has been obtained from him for this, including risks of bleeding and perforation. PREOPERATIVE DIAGNOSIS: Personal history of tubular adenoma of the colon and colorectal cancer screening. POSTOPERATIVE DIAGNOSIS: PROCEDURE PERFORMED: Colonoscopy of the cecum. ESTIMATED BLOOD LOSS: COMPLICATIONS: ANESTHESIA: Monitored anesthesia care. ASSISTANTS: SPECIMENS: POSTOPERATIVE DIAGNOSES: Personal history of tubular adenoma of the colon and colorectal cancer screening, diverticulosis, internal hemorrhoids, relatively poor prep. DESCRIPTION OF PROCEDURE: The patient was placed in the left lateral decubitus position. The digital rectal exam revealed no abnormalities. The Olympus video pediatric colonoscope was entered into the rectum and advanced easily to the cecum. Once in the cecum, after copious irrigation and suctioning, I was able to visualize the cecum well and this appeared normal without any mass or ulceration. There was transillumination of light deep in the right lower quadrant. The scope was then slowly withdrawn assessing all mucosal surfaces carefully. Unfortunately, despite a reported 2-day prep, his preparation throughout the colon was still relatively poor. There was a fair amount of solid stool in various locations. Portions of the bowel I did visualize appeared normal. I did not visualize any sign of polyps, colitis, nor angiodysplasia. There was a mild amount of sigmoid diverticulosis. In the rectum, scope was retroflexed visualizing internal hemorrhoids, but no other pathology. The rectal mucosa appeared normal, but again the prep was somewhat limited. The scope was straightened and withdrawn the patient. He tolerated the procedure well and was returned to recovery area in stable condition. IMPRESSION: 1. Limited bowel prep. 2. Diverticulosis. 3. Internal hemorrhoids. PLAN: I would recommend a repeat colonoscopy in 3 years for further screening and surveillance. We shall discuss further prep instructions at that time. MD ELEAZAR Claros/FREDDY / [id number]
== END 2023-07-26 13:50 | disposition home or self-care (01) ==
PROVIDERS: PCP Family Medicine; Visit Provider Internal Medicine
PROC: 0DJD8ZZ Inspection of Lower Intestinal Tract, Via Natural or Artificial Opening Endoscopic (ICD-10-PCS; CPT 45378; principal; 2023-07-26 13:40)
DX: Z12.11 Encounter for screening for malignant neoplasm of colon (principal); Z86.010 Personal history of colon polyps; K57.30 Diverticulosis of large intestine without perforation or abscess without bleeding; K64.8 Other hemorrhoids; I10 Essential (primary) hypertension; G89.4 Chronic pain syndrome; M54.50 Low back pain, unspecified; M76.32 Iliotibial band syndrome, left leg; M17.0 Bilateral primary osteoarthritis of knee; M70.62 Trochanteric bursitis, left hip; M70.61 Trochanteric bursitis, right hip; E66.01 Morbid (severe) obesity due to excess calories; Z68.36 Body mass index [BMI] 36.0-36.9, adult; F32.A Depression, unspecified; Z79.51 Long term (current) use of inhaled steroids; Z79.82 Long term (current) use of aspirin; Z79.899 Other long term (current) drug therapy; Z88.8 Allergy status to other drugs, medicaments and biological substances
CPT/HCPCS: G0105

== ENCOUNTER 2023-09-06 13:36 | Outpatient (AMB) | payer OTHER, SELFPAY ==
--- NOTE | 2023-09-06 13:38 | A.OFFVIS_ITS ---
Intake Vital Signs 09/06/23 13:43 Height 5 ft 4 in Weight 214 lb 6 oz BMI 36.8 BP 130/80 Blood Pressure Location Lt brachial Position Sitting Respiration 14 Pulse 95 Pulse Source Pulse Oximeter Pulse Oximetry (%) 96 Oxygen Delivery Method Room Air Intake Visit Reasons: follow up increased back pain/confirmed Allergies acetaminophen [From Tylenol] Adverse Reaction (Verified 09/06/23 13:44) Agitated HPI HPI Comments History of Present Illness Details Ernesto is very pleasant 67 years old gentleman who is in my office today to discuss new pain. He reports pain in the back radiating into the right hip right thigh right knee right foot and all the way to his toes. He reports sometimes spastic sensations in the right foot with his toes curling up on him. He reports some weakness in the right lower extremity. He denies any numbness or paresthesia. He was sent to MRI, however because of the claustrophobia he was sent to [facility] open machine. Unfortunately that facility charged 400 d ollars up front from the patient and he reports that he cannot afford this payment. He call his insurance company and insurance company explained to him that the MRI should be without any additional payment. We will call the facility and we will find out what is going on there and try to perform MRI on the patient's back again. At this time I can only recommend him to consider paying what he was requested for the diagnostic evaluation. . He reports this pain was mild in the past but now it became worse. He was 1 year ago in my office under observation for pain in the right knee for which he was implanted with stim wave PNS curonics with very good results. He continues to wear the device and device he reports alleviate pain in his knee however new pain is starting to overcome. Prior: treated in my office for? pain in bilateral knees left more than right bilateral hips left more than right and the lower back. Ernesto return to the office today with the complains on pain in the right knee.? He received on 12/04/2021the implant of infrapatellar saphenous nerves peripheral stimulation stim wave.? He reported the originally very good results with the trial PNS and after that he received the implant after which he reported 100% pain relief .? However today he complains on not capturing of the pain from his device.? He reports pain on the lateral side of the knee with the spread of the pain and spread of the pain down to the lower leg and all the way to the lateral malleolus.? I recommended him to get into contact with stim wave footwear sales representative to tried to adjust stimulation patterns.? I recommended him to come back if this will be unsuccessful. Prior:? This patient was under care of multiple practitioners in the past.? He received multiple injections with [facility] to treat the pain in the knees as well as pain in the hips as well as pain in the back.? He was under care of Dr. Jones, who diagnosed him with knee osteoarthritis and perform left knee injection.? The patient reported that knee injection was working for short period of time.? He was diagnosed with iliotibial band syndrome on the left lower extremity as well as bilateral trochanteric bursitis.? He received some injections into that area without significant success.? He is actively participating with physical therapy now.? He was participating in physical therapy before.? He has stationary bicycle at home and he tries to exercise aerobically.? However obviously he has excess of the weight.? He tried NSAIDs to treat his pain without significant success. He tried tramadol in the past and it was not effective for him in max doses. [facility] Medical History GERD (gastroesophageal reflux disease) On beta jenna at home Depression HTN (hypertension) Morbid obesity Chronic pain syndrome Low back pain Greater trochanteric bursitis of both hips Iliotibial band syndrome, left leg Bilateral primary osteoarthritis of knee Surgical History Hx of colonoscopy Social History Patient Tobacco Use Status: Never used Tobacco Review of Systems Const All systems reviewed & are unremarkable except as noted in HPI and below Physical Exam Vital Signs: Last Vital Signs Pulse 95 09/06/23 13:43 Resp 14 09/06/23 13:43 BP 130/80 09/06/23 13:43 Pulse Ox 96 09/06/23 13:43 Oxygen Delivery Method Room Air 09/06/23 13:43 BMI result Body Mass Index 36.8 Const Nutritional Appearance: obese morbidly obese Eyes General: appearance normal, both eyes and all related structures Pupils: Equal, round and reactive pupils present EOM: EOMs intact bilaterally Neck Neck: Yes full ROM Chest Chest palpation & inspection: normal inspection of the chest Resp Effort & Inspection: normal respiratory effort, able to speak in complete sentences, normal respiratory pattern, no audible wheezes and no cough Cardio Jugular venous distension: no JVD GI Inspection: Yes normal to inspection Back/Spine/Pelvis Other: Reports pain in the lower back. The pain radiates into the right lower extremity. He reports pain severe 7/10. SLR is positive for pain increase. Lassegue test is positive for pain increase. Flexing forward aggravates his pain. Valsalva maneuver aggravates his pain. Neuro Cranial nerves: Yes Equal, round and reactive pupils present Gait exam (Neuro): Normal gait present Motor exam (neuro): 5/5 motor strength present throughout Extrem General: No pedal edema Psych Speech and movement: Normal speech and movement present Affect: normal affect Attitude: cooperative Thought process: Normal thought process present Thought content: Normal thought content present Assessment & Plan Assessment & Plan (1) Bilateral primary osteoarthritis of knee: Code(s): M17.0 - Bilateral primary osteoarthritis of knee (2) Low back pain: Code(s): M54.5 - Low back pain (3) Chronic pain syndrome: Code(s): G89.4 - Chronic pain syndrome (4) Morbid obesity: Code(s): E66.01 - Morbid (severe) obesity due to excess calories (5) Radiculopathy of lumbar region: Code(s): M54.16 - Radiculopathy, lumbar region (6) Disc degeneration, lumbar: Code(s): M51.36 - Other intervertebral disc degeneration, lumbar region (7) Low back pain: Code(s): M54.5 - Low back pain Plan infrapatellar saphenous peripheral nerve stimulation at the beginning gave him 100% pain improvement. Looks like he developed some sort of radiculopathy into the right lower extremity from the lumbar spine. He never had an MRI in the past. I ordered MRI in [place] him for MRI of the lumbar spine. BECAUSE OF HIS CLAUSTROPHOBIA. Unfortunately he was asked to pay a co-payment of 400 dollars for the procedure. The only thing I can offer to the patient to go to our MRI machine and try to tolerate this procedure can order him Xanax for example to be less anxious to go into the MRI machine. The patient will be calling us about his decision. He has an option to go to MRI machine at [facility] and pay for it or try our in-house MRI machine. He will let us know about what options he will choose. Coding Level of Care Code Est Pt Level 3 (68676) Diagnoses Bilateral primary osteoarthritis of knee M17.0 Low back pain M54.5 Chronic pain syndrome G89.4 Morbid obesity E66.01 Radiculopathy of lumbar region M54.16 Disc degeneration, lumbar M51.36
[2023-09-06 13:43] VITALS: BP 130/80; PULSE 95; RESP 14; O2SAT 96; BMI 36.8
== END 2023-09-06 13:53 | disposition home or self-care (01) ==
PROVIDERS: PCP Family Medicine; Visit Provider Anesthesiology
DX: M17.0 Bilateral primary osteoarthritis of knee (principal); M54.50 Low back pain, unspecified; G89.4 Chronic pain syndrome; E66.01 Morbid (severe) obesity due to excess calories; M54.16 Radiculopathy, lumbar region; M51.36 Other intervertebral disc degeneration, lumbar region
CPT/HCPCS: 99213

== ENCOUNTER → 2023-09-06 13:36 | Outpatient (BNVA) | payer OTHER, SELFPAY | PROVIDERS: PCP Family Medicine; Visit Provider Anesthesiology | DX: M17.0 Bilateral primary osteoarthritis of knee (principal); M54.16 Radiculopathy, lumbar region; M54.59 Other low back pain; M51.36 Other intervertebral disc degeneration, lumbar region; E66.01 Morbid (severe) obesity due to excess calories; G89.4 Chronic pain syndrome; Z68.36 Body mass index [BMI] 36.0-36.9, adult | CPT/HCPCS: 99212 ==

== ENCOUNTER 2024-01-04 06:59 | Outpatient (REF) | payer OTHER, SELFPAY ==
[2024-01-04 08:12] LABS: Estimated Average Glucose 134 mg/dL; Hemoglobin A1c % 6.3 % (<6.0)
[2024-01-04 08:29] LABS: Alanine Aminotransferase 41 U/L (0-40); Anion Gap 11 (12-20); Aspartate Amino Transferase 37 U/L (5-37); Blood Urea Nitrogen 17 mg/dL (9-16); Carbon Dioxide 28 mmol/L (22-29); Chloride 104 mmol/L (96-108); Cholesterol 162 mg/dL (<200); Estimated Glomerular Filt Rate > 60; Glucose Fasting 127 mg/dL (60-99); HDL Cholesterol 39 mg/dL (>40); LDL Cholesterol Calculated 99 mg/dL (<100); Sodium 139 mmol/L (135-145); Triglycerides 120 mg/dL (<150)
[2024-01-04 08:29] LABS: Creatinine Urine 252.69 mg/dL; Microalbum/Creatinine Ratio Ur 7.9 ug/mg cr (<30)
[2024-01-12 18:13] LABS: FIB-ALT 33 U/L (9-46); FIB-Alpha-2-Macroglobulin 236 mg/dL (106-279); FIB-Apolipoprotein A1 138 mg/dL (94-176); FIB-GGT 38 U/L (3-70); FIB-Haptoglobin 144 mg/dL (43-212); FIB-Total Bilirubin 0.5 mg/dL (0.2-1.2); Liver Fibrosis Score 0.43; Liver Fibrosis Stage F1-F2; Nec Inflam Act Grade A0-A1
== END 2024-01-04 07:00 | disposition home or self-care (01) ==
LOC: HO.LAB 06:59
PROVIDERS: PCP Family Medicine; Visit Provider Family Medicine
DX: I10 Essential (primary) hypertension (principal); E11.9 Type 2 diabetes mellitus without complications; K75.81 Nonalcoholic steatohepatitis (NASH); E78.00 Pure hypercholesterolemia, unspecified; Z79.899 Other long term (current) drug therapy
CPT/HCPCS: 36415; 80051; 80061; 81596; 82043; 82550; 82565; 82570; 82947; 83036; 84450; 84460; 84520

== ENCOUNTER 2024-04-13 10:23 | Emergency (ER) | payer OTHER, SELFPAY ==
--- NOTE | ~2024-04-13 | XR_ITS ---
EXAMINATION: XR CHEST CLINICAL INFORMATION: Shortness of breath 2 days history of asthma COMPARISON: Chest radiograph from 01/30/2014 TECHNIQUE: Frontal view of the chest was obtained. FINDINGS: No focal consolidation. No pneumothorax. Trachea is midline. Cardiac mediastinal silhouette is not enlarged. No large pleural effusion. Degenerative changes of the thoracolumbar spine. Soft tissues are unremarkable. XR/XR chest 1V IMPRESSION: No acute cardiopulmonary process.
[2024-04-13 10:42] VITALS: BP 133/71; PULSE 72; RESP 16; TEMP 36.1; O2SAT 98; BMI 35.4
--- NOTE | 2024-04-13 10:46 | ECG_ITS ---
Test Reason : CHEST PAIN Blood Pressure : / mmHG Vent. Rate : 071 BPM Atrial Rate : 071 BPM P-R Int : 144 ms QRS Dur : 134 ms QT Int : 430 ms P-R-T Axes : -29 -55 -06 degrees QTc Int : 467 ms Normal sinus rhythm Right bundle branch block Left anterior fascicular block Bifascicular block Abnormal ECG When compared to the previous EKG of Right bundle branch block present Referred By: Generic ED Physician Electronically Signed By:Ashu Hernandez
[2024-04-13 10:59] LABS: MANUAL DIFF FLAG NO
[2024-04-13 11:07] LABS: Basophils Percent Auto 0.3 % (0-2); Eosinophils Absolute Auto 0.2 X10*3/uL (0.0-0.4); Eosinophils Percent Auto 2.9 % (0-4); Hematocrit 41.7 % (42.0-52.0); Hemoglobin 14.3 g/dl (14.0-18.0); Imm Gran Abs Auto 0.02 X10*3/uL (0.00-0.03); Imm Gran Pct Auto 0.3 % (0.0-0.4); Lymphocytes Absolute Auto 1.2 X10*3/uL (1.2-4.9); Lymphocytes Percent Auto 16.3 % (20-40); Mean Corpuscular HGB Conc 34.3 g/dl (31.0-36.0); Mean Corpuscular Hemoglobin 32.2 pg (27.0-33.0); Mean Corpuscular Volume 93.9 fL (80.0-98.0); Mean Platelet Volume 9.4 fL (9.4-12.4); Monocytes Absolute Auto 1.2 X10*3/uL (0.1-1.2); Monocytes Percent Auto 16.1 % (2-11); Neutrophils Absolute Auto 4.7 x10*3/uL (2.0-8.3); Neutrophils Percent Auto 64.1 % (45-73); Platelet Count 151 X10*3/uL (160-400); Red Blood Count 4.44 X10*6/uL (4.60-5.80); Red Cell Distribution Width 13.5 % (11.0-16.0); White Blood Count 7.3 X10*3/uL (4.8-10.8)
[2024-04-13 11:25] LABS: Alanine Aminotransferase 51 U/L (0-40); Alkaline Phosphatase 56 U/L (39-117); Anion Gap 11 (12-20); Aspartate Amino Transferase 46 U/L (5-37); Bilirubin Direct 0.1 mg/dL (0.0-0.5); Bilirubin Total 0.5 mg/dL (0.0-1.0); Blood Urea Nitrogen 16 mg/dL (9-16); Calcium 9.4 mg/dL (8.4-10.2); Carbon Dioxide 26 mmol/L (22-29); Chloride 107 mmol/L (96-108); Creatinine Clr Calc Pharmacy 91.1; Estimated Glomerular Filt Rate > 60; Glucose Random 171 mg/dL (60-115); Potassium 3.7 mmol/L (3.3-5.1); Sodium 140 mmol/L (135-145); Total Protein 7.2 g/dL (6.5-8.0)
[2024-04-13 11:33] LABS: Troponin-I High Sensitivity 6.6 ng/L (<3.5-35.0)
[2024-04-13 11:41] LABS: Influenza A PCR NEGATIVE (Negative); Influenza B PCR NEGATIVE (Negative); Resp Syncy Virus RNA Qual PCR NEGATIVE (Negative); SARS COV2 PCR INHOUSE POSITIVE (Negative)
--- NOTE | 2024-04-13 12:22 | ED.SOB ---
HPI - SOB/Dyspnea General Chief Complaint: Dyspnea Stated Complaint: chest pain Related Data Home Medications ?Medication ?Instructions ?Recorded ?Confirmed metoprolol succinate 100 mg 100 mg PO DAILY 09/25/20 11/28/21 tablet,extended release 24 hr sertraline 50 mg tablet 50 mg PO DAILY 09/25/20 11/28/21 tramadol 50 mg tablet 50 mg PO TID PRN Pain 09/25/20 11/28/21 albuterol sulfate 90 mcg/actuation 2 puff inhalation Q4H PRN Wheezing 11/28/21 11/28/21 aerosol inhaler (ProAir HFA) fluticasone propionate 50 1 spray intranasal DAILY PRN 11/28/21 11/28/21 mcg/actuation nasal allergies spray,suspension lisinopril 5 mg tablet 1 tab PO DAILY 11/28/21 11/28/21 aspirin 81 mg chewable tablet 81 mg PO DAILY 07/23/23 07/23/23 Allergies Allergy/AdvReac Type Severity Reaction Status Date / Time acetaminophen [From Tylenol] AdvReac Agitated Verified 04/13/24 10:46 PMFSH Past Medical History Medical History GERD (gastroesophageal reflux disease) On beta jenna at home Depression HTN (hypertension) Morbid obesity Chronic pain syndrome Low back pain Greater trochanteric bursitis of both hips Iliotibial band syndrome, left leg Bilateral primary osteoarthritis of knee Surgical History Hx of colonoscopy Social History Social History Patient Tobacco Use Status: Never used Tobacco Physical Exam Vital Signs: Vital Signs: Last Vital Signs Temp 97 F 04/13/24 10:42 Pulse 72 04/13/24 10:42 Resp 16 04/13/24 10:42 BP 133/71 04/13/24 10:42 Pulse Ox 98 04/13/24 10:42 O2 Del Method Room Air 04/13/24 10:42 BMI result Body Mass Index 35.4 Medical Decision Making Lab Data 04/13/24 10:55 04/13/24 10:55 Labs: Lab Results 04/13/24 Range/Units 10:55 WBC 7.3 (4.8-10.8) X10*3/uL RBC 4.44 L (4.60-5.80) X10*6/uL Hgb 14.3 (14.0-18.0) g/dl Hct 41.7 L (42.0-52.0) % MCV 93.9 (80.0-98.0) fL MCH 32.2 (27.0-33.0) pg MCHC 34.3 (31.0-36.0) g/dl RDW 13.5 (11.0-16.0) % Plt Count 151 L (160-400) X10*3/uL MPV 9.4 (9.4-12.4) fL Immature Gran % (Auto) 0.3 (0.0-0.4) % Neut % (Auto) 64.1 (45-73) % Lymph % (Auto) 16.3 L (20-40) % [place] % (Auto) 16.1 H (2-11) % Eos % (Auto) 2.9 (0-4) % Baso % (Auto) 0.3 (0-2) % Lymph # (Auto) 1.2 (1.2-4.9) X10*3/uL [place] # (Auto) 1.2 (0.1-1.2) X10*3/uL Eos # (Auto) 0.2 (0.0-0.4) X10*3/uL Baso # (Auto) 0.0 (0.0-0.2) X10*3/uL Abs Immat Gran (auto) 0.02 (0.00-0.03) X10*3/uL Absolute Neuts (auto) 4.7 (2.0-8.3) x10*3/uL Absolute Nucleated RBC 0.000 (0.0-0.012) X10*3/uL Nucleated RBC % (auto) 0.0 (0.0-0.2) /100WBC Sodium 140 (135-145) mmol/L Potassium 3.7 (3.3-5.1) mmol/L Chloride 107 (96-108) mmol/L Carbon Dioxide 26 (22-29) mmol/L Anion Gap 11 L (12-20) BUN 16 (9-16) mg/dL Creatinine 0.80 (0.5-1.4) mg/dL Estim Creat Clear Calc 91.1 Estimated GFR > 60 Random Glucose 171 H (60-115) mg/dL Calcium 9.4 (8.4-10.2) mg/dL Total Bilirubin 0.5 (0.0-1.0) mg/dL Direct Bilirubin 0.1 (0.0-0.5) mg/dL AST 46 H (5-37) U/L ALT 51 H (0-40) U/L Alkaline Phosphatase 56 (39-117) U/L Troponin I High Sens 6.6 (<3.5-35.0) ng/L Total Protein 7.2 (6.5-8.0) g/dL Albumin 4.0 (3.5-5.0) g/dL Influenza Type A (PCR) NEGATIVE (Negative) Influenza Type B (PCR) NEGATIVE (Negative) RSV RNA Qual (PCR) NEGATIVE (Negative) SARS-CoV-2 RNA (RT-PCR) POSITIVE A (Negative) Critical Care Time Critical Care Time Critical Care Time: No Discharge Plan Discharge Clinical Impression: COVID-19 Patient Disposition: Left Without Being Seen Prescriptions: No Action lisinopril 5 mg tablet 1 tab PO DAILY albuterol sulfate [ProAir HFA] 90 mcg/actuation HFA aerosol inhaler 2 puff inhalation Q4H PRN (Reason: Wheezing) fluticasone propionate 50 mcg/actuation spray,suspension 1 spray intranasal DAILY PRN (Reason: allergies) aspirin 81 mg Tablet,Chewable 81 mg PO DAILY tramadol 50 mg tablet 50 mg PO TID PRN (Reason: Pain) metoprolol succinate 100 mg tablet extended release 24 hr 100 mg PO DAILY sertraline 50 mg tablet 50 mg PO DAILY Print Language: Frisian
== END 2024-04-13 12:48 | disposition left against medical advice (07) ==
PROVIDERS: Emergency Provider Emergency Medicine; PCP Family Medicine
DX: U07.1 COVID-19 (principal); R07.9 Chest pain, unspecified; Z03.818 Encounter for observation for suspected exposure to other biological agents ruled out
CPT/HCPCS: 0241U; 71045; 80048; 80076; 84484; 85025; 93005; 99283

== ENCOUNTER → 2024-04-13 10:46 | Outpatient (BNV) | payer OTHER, SELFPAY | PROVIDERS: Emergency Provider Emergency Medicine; PCP Family Medicine; Visit Provider Internal Medicine Cardiovascular Disease | DX: R07.9 Chest pain, unspecified (principal) | CPT/HCPCS: 93010 ==

== ENCOUNTER 2024-05-15 07:03 | Outpatient (REF) | payer MEDICARE, SELFPAY ==
[2024-05-15 08:27] LABS: Estimated Average Glucose 137 mg/dL; Hemoglobin A1c % 6.4 % (<6.0)
[2024-05-15 09:01] LABS: Alanine Aminotransferase 35 U/L (0-40); Aspartate Amino Transferase 30 U/L (5-37); Cholesterol 174 mg/dL (<200); Glucose Fasting 106 mg/dL (60-99); HDL Cholesterol 45 mg/dL (>40); LDL Cholesterol Calculated 84 mg/dL (<100); Triglycerides 226 mg/dL (<150)
[2024-05-15 09:03] LABS: Creatinine Urine 207.04 mg/dL; Microalbum/Creatinine Ratio Ur 7.7 ug/mg cr (<30)
== END 2024-05-15 07:04 | disposition home or self-care (01) ==
LOC: HO.LAB 07:03
PROVIDERS: PCP Family Medicine; Visit Provider Family Medicine
DX: E78.00 Pure hypercholesterolemia, unspecified (principal); E11.9 Type 2 diabetes mellitus without complications
CPT/HCPCS: 36415; 80061; 82043; 82550; 82570; 82947; 83036; 84450; 84460

== ENCOUNTER 2024-08-08 09:41 | Outpatient (REF) | payer MEDICARE, SELFPAY ==
--- NOTE | 2024-08-08 09:44 | EMG_ITS ---
Right tibial and peroneal motor studies were performed. Right superficial peroneal and sural sensory studies were performed and paraspinal muscles were tested with a needle. Tibial H-reflex was performed. IMPRESSION: Mild sensory neuropathy. Otherwise, no significant abnormality noted on this testing. MD SHERRELL Shaw/MECHEL / [id number]
== END 2024-08-08 09:42 | disposition home or self-care (01) ==
LOC: HO.NEURO 09:41
PROVIDERS: PCP Family Medicine; Visit Provider Family Medicine
DX: R53.1 Weakness (principal); M96.1 Postlaminectomy syndrome, not elsewhere classified; M48.00 Spinal stenosis, site unspecified
CPT/HCPCS: 95886; 95910

== ENCOUNTER 2025-03-01 07:18 | Outpatient (REF) | payer MEDICARE, SELFPAY ==
--- OUTSIDE RECORDS SUMMARY | 2025-03-01 07:21 | XMS_ITS | Patient Health Record ---
Author Organization [facility] Address [address] [place] [address] Care Team Providers Care Market Editor Name Role Phone Yeison Puente MD Primary Care Provider Félix Fuentes Unavailable [phone] Allergies Allergen (clinical drug ingredient) Drug/Non Drug Allergy documented on EMR Reaction Allergy Type Onset Date Status sudamedaphine (uncoded) Unknown Allergy Active Reason For Referral No Information Medications Medication SIG (Take, Route, Frequency, Duration) Notes Start Date End Date Status Alive Mens Energy Ac tive traMADol HCl 50 MG Orally as needed Active Metoprolol Succinate ER 100 MG TAKE 1 TABLET BY MOUTH ONCE A DAY Oral for 90 Active Sertraline HCl 50 MG TAKE 1 TABLET BY MO UTH EVERY DAY Oral for 90 Active Dulcolax (colon prep) 5 MG 2 Orally 2pil ls 2 days before colonoscopy and take two tablets twice a day for one day before procedure for 2 days 01/11/2020 Active MiraLax (colon prep) 17 GM/SCOOP 238 Gm bottle mixed with Gatorade or Crystal Light Orally Do 1 bottle 2 days before the procedure and begin 1 bottle at 5:00 p.m. the day before the procedure for 2 days 01/11/2020 Active Aspirin 81 81 MG 1 tablet Orally Once a day Active Immunizations Vaccine Route Administration Date Status Comme nts Influenza Unknown 08/02/2018 Administered Influenza Unknown 06/04/2019 Administered Social History Tobacco Use: Social History Observation Description Date Details (start date - stop date) Never Smoker NA - NA Tobacco Use/Smoking Question Answer Notes Patient is a nonsmoker Alcohol Screen Question Answer Notes Did you have a drink containing alcohol in the p ast year? No Points 0 Interpretation Negative Section Notes: Nonsmoker; occasional glass of wine Nonsmoker; occasional glass of wine Nonsmoker; occasional glass of wine Problems Problem Type SNOMED Code ICD Code Onset Dates Problem Status W/U Status Risk Notes Problem 162717866 Encounter for screening for malignant neoplasm of colon (Z12.11) Active confirmed Problem History of adenomatous polyp of colon (704485840) History of adenomatous polyp of colon (Z86.010) Active confirmed Problem History of polyp of colon (situation) (311818388) Personal history of colonic polyps (Z86.010) Active confirmed Problem Diverticular disease of colon (594568279) Diverticulosis of large intestine without perforation or abscess without bleeding (K57.30) Active confirmed Problem 205391581 Long-term use of aspirin therapy (Z79.82) Active confirmed Problem 131550409890928 Pre-procedural examination (Z01.818) Active confirmed Problem 90191101 Hypertension, unspecified type (I10) Active confirmed Plan Of Treatment Future Test Test Name Order Date COLONOSCOPY 08/02/2018 COLONOSCOPY 01/11/2020 COLONOSCOPY 05/18/2023 Insurance Providers Payer Name Payer Address Payer Phone Subscriber Number Group Number Insured Name Patient Relationship to Insured Coverage Start Date Coverage End Date [facility] Medicare Advantage Plan [address] [address] [place] [address] [id number] BEN SALAZAR Self - patient is the insured MEDICA[employer] [facility] [address] [place] [address] [id number] BEN SALAZAR Self - patient is the insured Medical (General) History Medical History History ICD Code Denies OR,DM,CVA,Lung disease,renal dise ase Hypertension Depression Colonoscopy in 07/2008--smal l tubular adenomas removed, mild diverticulosis, small internal hemorrhoids Screening colonoscopy in Nov with a small tubular adenoma removed from the ascending colon--however, preparation was very limited throughout the colon and a repeat exam was recommended for about one year thereafter Colonoscopy 03/2020 with a sm all tubular adenoma removed. He did a two-day preparation for that procedure with better results in regard to the cleanout, although still not excellent Surgical History Surgery Date(Month/Year)
[2025-03-01 07:51] LABS: Estimated Average Glucose 157 mg/dL; Hemoglobin A1C 207.0712 umol/L; Hemoglobin A1c % 7.1 % (<6.0); Total Hemoglobin (HGBA1C) 3808.2177 umol/L
[2025-03-01 08:02] LABS: Alanine Aminotransferase 37 U/L (0-40); Anion Gap 12 (12-20); Aspartate Amino Transferase 39 U/L (5-37); Blood Urea Nitrogen 15 mg/dL (9-16); Carbon Dioxide 27 mmol/L (22-29); Chloride 105 mmol/L (96-108); Cholesterol 142 mg/dL (<200); Estimated Glomerular Filt Rate > 60; Glucose Fasting 130 mg/dL (60-99); HDL Cholesterol 40 mg/dL (>40); LDL Cholesterol Calculated 68 mg/dL (<100); Potassium 3.9 mmol/L (3.3-5.1); Sodium 140 mmol/L (135-145); Triglycerides 170 mg/dL (<150)
== END 2025-03-01 07:19 | disposition home or self-care (01) ==
LOC: HO.LAB 07:18
PROVIDERS: PCP Family Medicine; Visit Provider Family Medicine
DX: I10 Essential (primary) hypertension (principal); E11.9 Type 2 diabetes mellitus without complications; E78.00 Pure hypercholesterolemia, unspecified
CPT/HCPCS: 36415; 80051; 80061; 82550; 82565; 82947; 83036; 84450; 84460; 84520

== ENCOUNTER 2025-06-25 10:25 | Outpatient (AMB) | payer MEDICARE, SELFPAY ==
--- NOTE | 2025-06-25 10:33 | A.OFFPC_ITS ---
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 Accompanied by: Self / Same As Patient Allergies acetaminophen (From Tylenol) Adverse Reaction (Verified 06/25/25 10:34) Agitated Medication List - Last Reconciled 06/25/25 by HUNG Lamar albuterol sulfate 90 mcg/actuation (ProAir HFA) 2 puffs inhalation Q4H PRN aspirin 81 mg PO DAILY fluticasone propionate 50 mcg/actuation 1 spray intranasal DAILY PRN gabapentin 600 mg PO BEDTIME lisinopril 1 tab PO DAILY meloxicam 15 mg PO QAM metoprolol succinate ER 100 mg PO DAILY ropinirole 1 mg PO BEDTIME sertraline 50 mg PO DAILY simvastatin 10 mg PO BEDTIME Tobacco use date assessed: 06/25/25 Fall risk assessment: 1 Fall in past year Last assessed Fall Risk: 06/25/25 Dental Screening Dental Screen Date: 06/25/25 Did you have a dental visit in the last 12 months?: Yes Did you have a dental problem in the last 6 months where you did not have access to dental care?: No Was dental information given to patient?: No HPI HPI Comments History of Present Illness Details 70-year-old male with history of hyperte nsion, type 2 diabetes, peripheral neuropathy, osteoarthritis of the knees, GERD, [place], major depressive disorder, bifascicular block presenting to the office today for management of chronic conditions and to establish care. Type 2 diabetes/diabetic polyneuropathy-last hemoglobin A1c 7.1%. Was unaware of diagnosis. Not on medications for his diabetes. On gabapentin 600 mg nightly. cataract- [facility]. several months ago. PAD- [facility]. No procedure, just ultrasoung. Still some discomfort. On baby aspirin RLS- on gabapentin, ropironole . Still symptomatic affecting sleep Hypertension-on metoprolol 100 mg ER, lisinopril. Blood pressure in the office 108/78. Hyperlipidemia-on simvastatin 10 mg daily. Last LDL 68 Major depressive disorder-on sertraline 50 mg daily Osteoarthritis-meloxicam Right lumbar radiculopthy- s/p implant of infrapatellar saphenous nerves peripheral stimulation (12/04/21), initially 100% pain relief, but no longer experiences relief by Dr. Nelson. has chips in leg. constant. worse with laying and walking. very limiting, used to go hiking. Would like to see different provider MRI 10/[address] [facility]: T12-L1: No foraminal or spinal canal stenosis L1-2: No foraminal or spinal canal stenosis L2-3: No foraminal or spinal canal stenosis L3-4: No foraminal or spinal canal stenosis L4-5: Bilateral facet arthropathy with ligamentum flavum thickening. No focal disc protrusion, foraminal stenosis, or spinal canal stenosis L5-S1 no focal disc protrusion, foraminal stenosis, spinal canal stenosis. Mild bilateral facet arthropathy Impression: Lower lumbar facet arthritis, most pronounced at L4-5 where there is mild surrounding edema/inflammation. No focal disc protrusion, foraminal stenosis, or spinal canal stenosis Obesity-BMI 34.7. Has been gradually losing weight, reports healthy diet low in sugar Concerns: As above Health maintenance: Last screening colonoscopy 07/2023 with 3 year follow-up advised. Dr. Wong ROS: See HPI EXAM: Constitutional - Awake and Alert, No apparent distress Eyes - PERRL Cardiovascular - S1S2, RRR, No edema Respiratory - Normal lung expansion, Normal respiratory effort, No respiratory distress, CTA bilaterally Extremities - no calf tenderness bilaterally, no swelling MSK-tenderness to palpation over the midline lumbar spine at the level of about L4-L5. Limited flexion and extension Skin - Warm/Dry Neurological - Alert & oriented x3. 5/5 strength bilateral lower extremities. Sensation intact Psychological - Appropriate affect [facility] Medical History (Updated 06/25/25 @ 12:52 by HUNG Lamar) RLS (restless legs syndrome) Hyperlipidemia Diabetic polyneuropathy Type 2 diabetes mellitus GERD (gastroesophageal reflux disease) On beta jenna at home Depression HTN (hypertension) Chronic pain syndrome Low back pain Greater trochanteric bursitis of both hips Iliotibial band syndrome, left leg Bilateral primary osteoarthritis of knee Surgical History (Updated 06/25/25 @ 12:50 by HUNG Lamar) S/P placement of nerve stimulator Hx of colonoscopy (~07/27/23) Social History Housing: House Patient Tobacco Use Status: Never used Tobacco e-Cigarette/Vaping Use: Never Used service: No Current occupational status: retired Cognitive needs: Yes (Walking stick) Hearing needs: No Vision needs: No Questionnaire PHQ-9 Over the last 2 weeks, how often have you been bothered by any of the following problems? 1. Little interest or pleasure in doing things: more than half the days 2. Feeling down, depressed, or hopeless: more than half the days 3. Trouble falling or staying asleep, or sleeping too much: nearly every day 4. Feeling tired or having little energy: nearly every day 5. Poor appetite or overeating: several days 6. Feeling bad about yourself - or that you are a failure or have let yourself or your family down: more than half the days 7. Trouble concentrating on things, such as reading the newspaper or watching television: more than half the days 8. Moving or speaking so slowly that other people could have noticed. Or the opposite - being so fidgety or restless that you have been moving around a lot more than usual: more than half the days 9. Thoughts that you would be better off or of hurting yourself in some way: nearly every day Total score: 20 Depression Screening Interpretation: Positive Depression Screening Done: Yes 82703 - PHQ-9 Billing: Yes Source: Developed by Drs. Félix Montiel, Vivi Pak, Armin Brown and colleagues, with an educational reuben from [employer]. Thrive Questionnaire Date Thrive assessed: 06/25/25 I am a: Patient What is your living situation today?: I have a steady place to live Within the past 12 months, did the food you bought not last and you didn't have the money to get more?: Never true Within the past 12 months, did you worry whether your food would run out before you got money to buy more?: Never true Do you have trouble paying for medicines?: No Do you have trouble getting transportation to medical appointments?: No Do you have trouble paying your heating and electricity bill?: No Do you have trouble taking care of your child, family member or friend?: No Do you have trouble with day-to-day activities such as bathing, preparing meals, shopping, managing finances, etc.?: No Are you currently unemployed and looking for a job?: No Are you interested in more education?: No Please select the resources that you would like help with: None THRIVE Score: 0 PALOMA-7 AMB Questionnaire PALOMA-7 Date PALOMA - 7 assessed: 06/25/25 Feeling nervous, anxious, or on edge: 3 = Nearly every day Not being able to stop or control worryin = Nearly every day Worrying too much about different things: 3 = Nearly every day Trouble relaxin = Nearly every day Being so restless that it is hard to sit still: 3 = Nearly every day Becoming easily annoyed or irritable: 3 = Nearly every day Feeling afraid as if something awful might happen: 3 = Nearly every day Total PALOMA-7 score (0-4 normal; 5-9 mild; 10-14 moderate; 15-21 severe): 21 Source: Developed by Drs. Félix Montiel, Vivi Pak, Armin Brown and colleagues, with an educational reuben from [employer]. PALOMA-7 Assessment Billing PALOMA-7 Assessment Tool: PALOMA-7 Assessment 81360 Physical exam (Primary Care) Vital Signs: Last Vital Signs Temp 97.7 F 06/25/25 10:42 Pulse 94 06/25/25 10:42 Resp 15 06/25/25 10:42 BP 108/78 06/25/25 10:42 Pulse Ox 97 06/25/25 10:42 Oxygen Delivery Method Room Air 06/25/25 10:42 BMI result Body Mass Index 34.7 Tobacco/Smoking Status: Tobacco use Status Tobacco use date assessed 06/25/25 06/25/25 10:46 Patient Tobacco Use Status Never used Tobacco 06/25/25 10:35 e-Cigarette/Vaping Use Never Used 06/25/25 10:46 PHQ-9: PHQ-9 Score PHQ-9: Total score 06/25/25 10:51 Depression Screening Interpretation: Positive Thrive Assessment: Date of Thrive Assessment Date Thrive assessed 06/25/25 06/25/25 10:46 Coding Level of Care Code New Pt Level 4 (97835) Complex EM visit Add On G2211 Diagnoses HTN (hypertension) I10 Hyperlipidemia E78.5 Radiculopathy of lumbar region M54.16 Diabetic polyneuropathy E11.42 RLS (restless legs syndrome) G25.81 Depression F32.A Additional Codes PHQ-9 - 32104 - PHQ-9 Billing: Yes ([id number]) PALOMA-7 Assessment Billing - PALOMA-7 Assessment Tool: PALOMA-7 Assessment 54370 ([id number]) Assessment & Plan Assessment & Plan (1) HTN (hypertension): Code(s): I10 - Essential (primary) hypertension Category: Medical Plan: Controlled. Continue lisinopril (2) Hyperlipidemia: Code(s): E78.5 - Hyperlipidemia, unspecified Category: Medical Plan: Last LDL at goal. Continue simvastatin (3) Radiculopathy of lumbar region: Code(s): M54.16 - Radiculopathy, lumbar region Category: Medical Plan: Last MRI reviewed. Referred to [facility] at patient's request. Can continue gabapentin and meloxicam (4) Diabetic polyneuropathy: Code(s): E11.42 - Type 2 diabetes mellitus with diabetic polyneuropathy Category: Medical Plan: Continue gabapentin. A1c ordered, previously controlled. He is counseled on diabetic diet and advised annual eye exams. (5) RLS (restless legs syndrome): Code(s): G25.81 - Restless legs syndrome Category: Medical Plan: Increase ropinirole to 1 mg at bedtime and continue gabapentin (6) Depression: Code(s): F32.A - Depression, unspecified Category: Medical Plan: Uncontrolled with PHQ-9 score 21, paloma 7 score 20. Increase sertraline to 75 mg daily. Plan Follow-up in the office in 3 months Orders: Orders Basic Metabolic Panel Today E11.42 - Type 2 diabetes mellitus with diabetic polyneuropathy, E11.9 - Type 2 diabetes mellitus without complications, E78.5 - Hyperlipidemia, unspecified, I10 - Essential (primary) hypertension Hemoglobin A1c Today E11.42 - Type 2 diabetes mellitus with diabetic polyneuropathy, E11.9 - Type 2 diabetes mellitus without complications, E78.5 - Hyperlipidemia, unspecified, I10 - Essential (primary) hypertension Microalbumin, Random (w Creat) Today E11.42 - Type 2 diabetes mellitus with diabetic polyneuropathy, E11.9 - Type 2 diabetes mellitus without complications, E78.5 - Hyperlipidemia, unspecified, I10 - Essential (primary) hypertension Prostate Specific Antigen Today E11.42 - Type 2 diabetes mellitus with diabetic polyneuropathy, E11.9 - Type 2 diabetes mellitus without complications, E78.5 - Hyperlipidemia, unspecified, I10 - Essential (primary) hypertension Referrals Orthopedics Referral G89.4 - Chronic pain syndrome, M51.36 - Other intervertebral disc degeneration, lumbar region, M54.16 - Radiculopathy, lumbar region Medications: New ropinirole administer 1-3 hours before bedtime 1 mg PO BEDTIME 90 tabs 1RF Changed From sertraline 50 mg PO DAILY To sertraline 75 mg (1.5 x 50 mg) PO DAILY 135 tabs 1RF
[2025-06-25 10:42] VITALS: BP 108/78; PULSE 94; RESP 15; TEMP 36.5; O2SAT 97; BMI 34.7
--- OUTSIDE RECORDS SUMMARY | 2025-06-25 12:43 | XMS_ITS | Patient Health Record ---
Author Organization [facility] Address [address] [place] [address] Care Team Providers Care Manager Engine Name Role Phone Kwame (RETIRED) Yeison WARE Primary Care Provider Unavailable Félix Wong Unavailable [phone] Allergies Allergen (clinical drug ingredient) Drug/Non Drug [...] 50 MG TAKE 1 TABLET BY MO UT EVERY DAY Oral for 90 Active Dulcolax [...] Problem Status W/U Status Risk Notes Problem 506169015 Encounter for screening for malignant neoplasm of colon (Z12.11) Active confirmed Problem History of adenomatous polyp of colon (129596332) History of adenomatous polyp of colon (Z86.010) Active confirmed Problem History of polyp of colon (situation) (549187974) Personal history of colonic polyps (Z86.010) Active confirmed Problem Diverticular disease of colon (934191489) Diverticulosis of large intestine without perforation or abscess without bleeding (K57.30) Active confirmed Problem 819357655 Long-term use of aspirin therapy (Z79.82) Active confirmed Problem [id number] Pre-procedural examination (Z01.818) Active confirmed Problem 50254182 Hypertension, unspecified type (I10) Active confirmed Plan Of Treatment Future Test Test Name Order Date COLONOSCOPY 08/02/2018 COLONOSCOPY 01/11/2020 COLONOSCOPY 05/18/2023 Insurance Providers Payer Name Payer Address Payer Phone Subscriber Number Group Number Insured Name Patient Relationship to Insured Coverage Start Date Coverage End Date [employer] Medicare Advantage Plan [address] [address] [place] [address] [id number] BEN SALAZAR Self - patient is the insured MEDICAID OF [facility] [address] [place] [address] [id number] BEN SALAZAR Self - patient is the insured Medical (General) History Medical History History ICD Code Denies IN,DM,CVA,Lung disease,renal dise ase Hypertension Depression Colonoscopy in [...]
== END 2025-06-25 11:06 | disposition home or self-care (01) ==
PROVIDERS: PCP Physician Assistant; Visit Provider Physician Assistant
DX: I10 Essential (primary) hypertension (principal); E78.5 Hyperlipidemia, unspecified; M54.16 Radiculopathy, lumbar region; E11.42 Type 2 diabetes mellitus with diabetic polyneuropathy; G25.81 Restless legs syndrome; F32.A Depression, unspecified

== ENCOUNTER → 2025-06-25 10:25 | Outpatient (BNVA) | payer MEDICARE, SELFPAY | PROVIDERS: PCP Family Medicine; Visit Provider Physician Assistant | DX: I10 Essential (primary) hypertension (principal); E78.5 Hyperlipidemia, unspecified; M54.16 Radiculopathy, lumbar region; E11.42 Type 2 diabetes mellitus with diabetic polyneuropathy; G25.81 Restless legs syndrome; F32.A Depression, unspecified; M19.90 Unspecified osteoarthritis, unspecified site; I73.9 Peripheral vascular disease, unspecified; Z79.82 Long term (current) use of aspirin; Z79.899 Other long term (current) drug therapy; Z13.31 Encounter for screening for depression; Z13.39 Encounter for screening examination for other mental health and behavioral disorders | CPT/HCPCS: 96127; 99202 ==

== ENCOUNTER 2025-06-25 11:11 | Outpatient (REF) | payer MEDICARE, SELFPAY ==
[2025-06-25 13:30] LABS: Hemoglobin A1C 201.2480 umol/L; Total Hemoglobin (HGBA1C) 3933.2016 umol/L
[2025-06-25 13:37] LABS: Anion Gap 8 (12-20); Blood Urea Nitrogen 13 mg/dL (9-16); Calcium 9.6 mg/dL (8.4-10.2); Carbon Dioxide 29 mmol/L (22-29); Chloride 104 mmol/L (96-108); Estimated Glomerular Filt Rate > 60; Potassium 3.9 mmol/L (3.3-5.1); Sodium 137 mmol/L (135-145)
[2025-06-25 14:03] LABS: Microalbum/Creatinine Ratio Ur 4.9 ug/mg cr (<30)
[2025-06-25 14:16] LABS: Prostate Specific Antigen 0.80 ng/mL (<0.05-4.0)
== END 2025-06-25 11:12 | disposition home or self-care (01) ==
LOC: HO.10HDL 11:11
PROVIDERS: Visit Provider Physician Assistant
DX: Z12.5 Encounter for screening for malignant neoplasm of prostate (principal); E78.5 Hyperlipidemia, unspecified; I10 Essential (primary) hypertension; E11.42 Type 2 diabetes mellitus with diabetic polyneuropathy
CPT/HCPCS: 36415; 80048; 82043; 82570; 83036; 84153